=== PATIENT | female | born 1955 | race Caucasian/White ===

== ENCOUNTER → 2017-06-03 | Outpatient (CLI) | payer BC | END | disposition home or self-care (01) | LOC: KCIC MRI 11:19 | DX: M50.323 Other cervical disc degeneration at C6-C7 level (principal); M47.892 Other spondylosis, cervical region; M48.02 Spinal stenosis, cervical region; M25.78 Osteophyte, vertebrae; M43.16 Spondylolisthesis, lumbar region; M51.36 Other intervertebral disc degeneration, lumbar region; D18.09 Hemangioma of other sites | CPT/HCPCS: 72141; 72148 ==

== ENCOUNTER → 2017-06-19 | Outpatient (CLI) | payer BC ==
[2017-06-19] MEDS: GADOBUTROL 7.5 MMOL/7.5 ML VIAL IV (09:54)
== END | disposition home or self-care (01) ==
LOC: KCIC MRI 09:08
DX: R51 Headache (principal)
CPT/HCPCS: 70553; A9585